=== PATIENT | male | born 1980 ===

== ENCOUNTER 2021-02-16 18:07 | Emergency (ER) | payer OTHER ==
[~2021-02-16] VITALS: Ht 170.2 cm; Wt 68.0 kg
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
[2021-02-16 19:41] LABS: HEMATOCRIT 44.4 % (36.7-47.1); MEAN CORPUSCULAR VOLUME 88.7 fL (73.0-96.2); PLATELET COUNT (AUTO) 488 K/uL (152-348)
[2021-02-16 19:49] LABS: CARBON DIOXIDE 29 mmol/L (21-32); CHLORIDE 104 mmol/L (98-107); CREATININE 1.2 mg/dL (0.6-1.3); GLUCOSE 117 mg/dL (74-106); POTASSIUM 4.7 mmol/L (3.5-5.1); UREA NITROGEN, BLOOD 24 mg/dL (7-18)
[2021-02-16 19:51] LABS: ETHANOL < 3 MG/DL (0-0)
[2021-02-16 19:54] LABS: ALANINE AMINOTRANSFERASE 42 U/L (16-63); ALKALINE PHOSPHATASE 72 U/L (50-136); ASPARTATE AMINOTRANSFERASE 20 U/L (15-37); BILIRUBIN,DIRECT 0.4 mg/dL (0.0-0.2); BILIRUBIN,TOTAL 2.9 mg/dL (0.2-1.0); TOTAL PROTEIN, SERUM 8.5 g/dL (6.4-8.2)
[2021-02-16] MEDS ORDERED: IV NS 1000 ML 1,000 ML IV ONE (20:00)
[2021-02-16 20:53] LABS: *BLOOD, URINE NEGATIVE (NEGATIVE); *CLARITY,URINE CLEAR (CLEAR); *COLOR,URINE DARK YELLOW (YELLOW); *KETONES,URINE NEGATIVE (NEGATIVE); *UROBILINOGEN,URINE 0.2 E.U./dl (NORMAL); LEUKOCYTE ESTERASE ,URINE TRACE (NEGATIVE); NITRITE, URINE POSITIVE (NEGATIVE); PH,URINE 5.5 (5.0-8.0); UGLUCOSE NEGATIVE (NEGATIVE)
[2021-02-16 20:59] LABS: *BILIRUBIN,URIN 1+ (NEGATIVE)
[2021-02-16 21:04] LABS: BACTERIA,URINE FEW /HPF (NONE SEEN); RBC,URINE 0-3 /HPF (0-3); WBC,URINE 20-50 /HPF (0-3)
[2021-02-16 21:05] LABS: MUCUS,URINE FEW /LPF (0-FEW); SQUAMOUS EPITHELIAL CELL,UR FEW /HPF (NONE SEEN); URINE AMORPHOUS URATE FEW /HPF
[2021-02-16 21:09] LABS: *AMPHETAMINE, URINE NEGATIVE (NEGATIVE); *CANNABINOID, URINE NEGATIVE (NEGATIVE); *COCCAINE, URINE NEGATIVE (NEGATIVE); *OPIATE, URINE NEGATIVE (NEGATIVE); *PHENCYCLIDINE SCREEN,URINE NEGATIVE (NEGATIVE)
--- NOTE | 2021-02-16 22:32 | NUR ---
Pt. sleeping. NAD. VSS.
[2021-02-16] MEDS ORDERED: CEFTRIAXONE 1 G in IV DEXTROSE 5% 50 ML IV ONE (22:45)
[2021-02-16] MEDS ORDERED: CEFTRIAXONE /D5W 50ML IVPB **ER PYXIS IV ONE (22:54)
[2021-02-16] MEDS ORDERED: CIPR-262 PO (23:46)
--- NOTE | 2021-02-16 23:59 | NUR ---
Patient given written and verbal discharge instructions. Patient verbalizes understanding of instructions. Patient is ambulatory with steady gait. Refuses offer of skilled nursing placement. Patient given list of available shelters in surrounding area. Pt. given food to take with him. Pt. declined clothing. NAD. VSS. All belongings taken.
[2021-02-17 00:02] VITALS: BP 144/79
== END 2021-02-17 00:03 | disposition home or self-care (01) ==
LOC: ER 18:09
DX: N39.0 Urinary tract infection, site not specified (principal); E86.0 Dehydration; F11.10 Opioid abuse, uncomplicated; F15.10 Other stimulant abuse, uncomplicated
CPT/HCPCS: 36415; 80048; 80076; 80307; 80320; 81001; 85025; 87040; 87077; 87086; 96365; 99284; J0696; A4663; G0480